=== PATIENT | male | born 1940 | race Caucasian/White ===

== ENCOUNTER 2018-03-04 09:22 | Emergency (ER) | payer MEDICARE, OTHER ==
[~2018-03-04] VITALS: Ht 170.2 cm; Wt 63.0 kg
[~2018-03-04 09:22] MED LIST: CRESTOR; GABAPENTIN; LORTAB 5 OR; LOVASTATIN40 MG OR; OMEPRAZOLE; PLAVIX; PREVACID30 M1 OR; SERTRALINE; TRAZODONE HCL
[2018-03-04] MEDS ORDERED: PREDNISONE10 MG PO (10:13)
[2018-03-04 10:15] VITALS: BP 135/77
== END 2018-03-04 10:23 | disposition home or self-care (01) ==
LOC: ED 09:22
DX: L50.9 Urticaria, unspecified (principal); L29.9 Pruritus, unspecified

== ENCOUNTER → 2018-12-28 | Outpatient (REF) | payer MEDICARE ==
[~2018-12-28] MED LIST changes: +PREDNISONE10 MG PO
[2018-12-28 08:17] LABS: HEMATOCRIT 51.5 % (39.0-50.0); HEMOGLOBIN 16.6 g/dl (14.0-18.0); IMMATURE GRANULOCYTES 0.4 % (0.0-5.0); MEAN CELL VOLUME 93.5 fL CALC (80.0-100.0); MEAN CORPUSCULAR HGB 30.1 pG CALC (26.0-32.0); MEAN CORPUSCULAR HGB CONC 32.2 g/L CALC (32.0-36.0); NEUT# 5.35 thou/uL (1.82-7.42); RED BLOOD COUNT 5.51 mill/uL (4.70-6.10); RED CELL DISTRI WIDTH 13.2 % (11.5-15.5)
[2018-12-28 08:48] LABS: ALBUMIN 3.8 g/dL (3.2-5.0); ALKALINE PHOSPHATASE 108 u/l (38-126); ANION GAP 12 (6-22 (CALC)); BILIRUBIN, TOTAL 0.5 mg/dL (0.0-1.4); BUN 19 mg/dL (8-23); BUN/CREATININE RATIO 19 (12-20 (CALC)); CALCULATED LDLCHOLESTEROL 78 mg/dL (62-129 (CALC)); CARBON DIOXIDE 26 mmol/l (22-30); CHLORIDE 106 mmol/l (95-108); CHOLESTEROL HDL RATIO 3.1 (<4.4 (CALC)); GFR > 60 ML/MIN (>=60 (CALC)); GFR FOR AFR.AMER. > 60 ML/MIN (>=60 (CALC)); HDL CHOLESTEROL 45 mg/dL (>=40); POTASSIUM 4.5 mmol/l (3.5-5.1); SGOT/AST 15 u/l (19-48); SODIUM 140 mmol/l (137-146); TOTAL CHOLESTEROL 141 mg/dl (0-199); TOTAL PROTEIN 7.1 g/dL (6.3-8.2); TOTAL TRIGLYCERIDES 88 mg/dl (30-149); VLDL CHOLESTROL 18 mg/dl (0-38 (CALC))
[2018-12-28 09:16] LABS: TSH, 3RD GENERATION 1.91 uIU/mL (0.47 - 4.68)
== END | disposition home or self-care (01) ==
LOC: LAB 07:09
PROVIDERS: ATTEND Family Medicine
DX: E78.9 Disorder of lipoprotein metabolism, unspecified (principal); R53.83 Other fatigue; Z72.0 Tobacco use; Z71.6 Tobacco abuse counseling

== ENCOUNTER → 2018-12-31 | Outpatient (REF) | payer MEDICARE, MEDICAID | END | disposition home or self-care (01) | LOC: LABSPEC 06:44 | PROVIDERS: ATTEND Family Medicine | DX: E78.9 Disorder of lipoprotein metabolism, unspecified (principal); R53.83 Other fatigue; Z72.0 Tobacco use; Z71.6 Tobacco abuse counseling ==

== ENCOUNTER 2021-12-24 07:40 | Emergency (ER) | payer MEDICARE, MEDICAID ==
[2021-12-24] VITALS (16 sets, daily range): BP systolic 62–209; BP diastolic 41–131
[~2021-12-24] VITALS: Ht 170.2 cm; Wt 57.0 kg
[~2021-12-24 07:40] MED LIST changes: -GABAPENTIN; +GABAPENTIN PO
[2021-12-24] MEDS ORDERED: CLOPIDOGREL75 MG PO (08:33)
[2021-12-24] MEDS ORDERED: LYRICA75 MG PO (08:33)
[2021-12-24] MEDS ORDERED: DITROPAN5 MG/TA1 PO (08:34)
[2021-12-24 08:35] LABS: HEMATOCRIT 48.2 % (39.0-50.0); IMMATURE GRANULOCYTES 0.5 % (0.0-5.0); MEAN CELL VOLUME 94.5 fL CALC (80.0-100.0); MEAN CORPUSCULAR HGB 29.4 pG CALC (26.0-32.0); MEAN CORPUSCULAR HGB CONC 31.1 g/dL CAL (32.0-36.0); NEUT# 8.19 thou/uL (1.82-7.42); RED BLOOD COUNT 5.1 mill/uL (4.70-6.10); RED CELL DISTRI WIDTH 13.7 % (11.5-15.5)
[2021-12-24] MEDS ORDERED: CRESTOR20 MG PO (08:35)
[2021-12-24] MEDS ORDERED: BACLOFEN10 MG PO (08:35)
[2021-12-24] MEDS ORDERED: TRAMADOL HCL50 MG PO (08:36)
[2021-12-24] MEDS ORDERED: FAMOTIDINE20 M1 PO (08:37)
[2021-12-24 08:56] LABS: ALBUMIN 3.5 g/dL (3.2-5.0); ALKALINE PHOSPHATASE 109 u/l (38-126); ANION GAP 12 (6-22 (CALC)); BILIRUBIN, TOTAL 0.4 mg/dL (0.0-1.4); BUN 28 mg/dL (8-23); BUN/CREATININE RATIO 26 (12-20 (CALC)); CARBON DIOXIDE 27 mmol/l (22-30); CHLORIDE 105 mmol/l (95-108); CREATININE 1.1 mg/dL (0.7-1.3); GFR > 60 ML/MIN (>=60 (CALC)); GFR FOR AFR.AMER. > 60 ML/MIN (>=60 (CALC)); POTASSIUM 4.8 mmol/l (3.5-5.1); SGOT/AST 20 u/l (19-48); SODIUM 138 mmol/l (137-146); TOTAL PROTEIN 7.1 g/dL (6.3-8.2)
[2021-12-24 12:30] LABS: URINE BILIRUBIN - DIPSTICK NEGATIVE (NEGATIVE); URINE BLOOD DIPSTICK SMALL (NEGATIVE); URINE COLOR YELLOW; URINE GLUCOSE - DIPSTICK NEGATIVE (NEGATIVE); URINE KETONE NEGATIVE (NEGATIVE); URINE LEUK ESTERASE NEGATIVE (NEGATIVE); URINE PH 5.5 (4.5-8.0); URINE PROTEIN - DIPSTICK NEGATIVE (NEG-TRACE); URINE SPECIFIC GRAVITY >=1.030; URINE UROBILINOGEN - DIPSTICK 0.2 E.U./dL (0.2)
[2021-12-24 12:31] LABS: URINE NITRITE - DIPSTICK NEGATIVE (Negative)
[2021-12-24 12:32] LABS: URINE EPITHELIAL CELLS MODERATE EPI/hpf (0-FEW); URINE RBC 0-2 RBC/hpf (0-5)
[2021-12-24] MEDS ORDERED: ULTRAM50 MG PO (12:47)
== END 2021-12-24 13:25 | disposition home or self-care (01) ==
LOC: ED 07:40
DX: S39.012A Strain of muscle, fascia and tendon of lower back, initial encounter (principal); R31.9 Hematuria, unspecified; I71.4 Abdominal aortic aneurysm, without rupture; I69.954 Hemiplegia and hemiparesis following unspecified cerebrovascular disease affecting left non-dominant side; F17.290 Nicotine dependence, other tobacco product, uncomplicated; W10.9XXA Fall (on) (from) unspecified stairs and steps, initial encounter; Y92.009 Unspecified place in unspecified non-institutional (private) residence as the place of occurrence of the external cause
CPT/HCPCS: Q9967